=== PATIENT | female | born 1935 | race Caucasian/White ===

== ENCOUNTER 2016-10-01 15:31 | Emergency (ER) | payer MEDICARE, MEDICAID ==
[~2016-10-01] VITALS: Ht 149.9 cm; Wt 61.2 kg
[~2016-10-01 15:31] MED LIST: ACETAMINOPHEN500 M3 PO; ALBUTEROL2.5 MG/NEB IN; APAP/OXYCODONE1 TA1 PO; ATIVAN GENERIC0.5 MG PO; ATIVAN1 MG PO; AUGMENTIN1 TA1 PO; AZITHROMYCIN 250 MG PO; BACTRIM DS 8001 TA1 PO; BIPAP XX; CARDIZEM30 MG PO; CHERATUSSIN AC120 ML PO; CHEWABLE ASPIRI81 M1 PO; CLINDAMYCIN HC300 MG PO; COMBIVENT1 ARO IH; DILTIAZEM CD120 MG PO; DILTIAZEM HYDRO30 MG PO; Docusate Sodiu100 MG PO; FERROUS SULFAT200 M1 PO; FERROUS SULFAT325 M2 PO; FUROSEMIDE 20MG20 MG PO; GABAPENTIN300 MG PO; GAVISCON 6180 ML/BOT PO; GAVISCON 95 MG360 ML; GAVISCON ESRF360 ML PO; GUAIFENESIN DM PO; GUAIFENESIN ER600 MG PO; GUAIFENESIN400 M1 PO; IMDUR 30MG. TAB30 MG PO; IMODIUM2 MG PO; INVANZ1 GM IV; K-DUR 20MEQ TA20 MEQ PO; KLOR-CON M2020 MEQ PO; LACTULOSE10 GM/151 PO; LANSOPRAZOLE30 MG PO; LASIX20 MG; LASIX20 MG OR; LASIX20 MG PO; LEVAQUIN500 MG PO; LORTAB 500 MG-71 TAB PO; MACROBID100 M3 PO; MAXZIDE 25 MG-31 TA1 PO; MAXZIDE 25 MG-31 TAB PO; METOPROLOL 25 M25 MG PO; METOPROLOL25 MG PO; MUCINEX600 M1 PO; MULTI VITAMINS1 TA1 PO; MYRBETRIQ50 MG PO; NAPROXEN DELAY375 MG PO; NITROFURANTOIN100 M2 PO; NITROGLYCERIN0.4 MG SL; NITROLINGU0.4 MG/ACT SL; NYSTATIN 150 M150 ML; NYSTOP100000 U/G EX; OMEPRAZOLE20 MG PO; ONE DAILY PLUS1 EAC1 PO; OXYBUTYNIN CHLOR5 MG; OXYBUTYNIN5 MG PO; PERCOCET 10 MG1 EACH PO; PERCOCET 325 MG1 TA3 PO; PERCOCET1 TAB PO; PREDNISONE 20MG20 MG PO; PREVACID 30MG C30 M1 PO; PROAIR HFA0.09 MG/AC IH; REQUIP 1 MG TABL1 MG PO; REQUIP3 M1 PO; ROBAFEN AC 10480 ML PO; ROBAFEN DM 10120 ML PO; ROBITUSSIN DM 105 ML PO; SENNA LAXATIVE8.6 MG PO; SENNA8.6 M1 PO; SEPTRA DS 800 M1 TAB PO; SINGULAIR 10 MG10 MG PO; SYMBICORT1 AE1 IH; TRAMADOL 512 EACH/PA PO; TYLENOL ES500 MG PO; TYLENOL EXTRA500 M1 PO; ULTRAM50 MG PO; VITAMIN D50000 IU PO; ZAROXOLYN 2.5M2.5 MG PO; ZOFRAN ODT8 MG PO
--- NOTE | 2016-10-01 16:01 | Emergency Room Report ---
See Addendum History of Present Illness Time Seen by [id number] Presenting Problem in Triage Pt arrived:Ambulance Stretcher Presenting Problem:PER ASSISTED REPORT PT HAS BEEN LETHARGIC TODAY, DECREASED RESPONSIVENESS AND LOW SAO2 TODAY. UPON PT ARRIVAL TO ED PT IS ALERT AND ORIENTED X3, SAO2 99% ON 3L PER [facility]. PT STATES "I DON'T KNOW WHY THEY SENT ME HERE I TOLD THEM I AM FINE" Onset of symptoms date/time:/ or onset unknown for:MEDICAL HX UNKNOWN Treatment Prior to Arrival: O2 @ 3L PER [facility] B[facility] SCOUT Provided by:EMT Sepsis Risk Assessment: Temp: 98.5 B/P: 134/71 MAP: 92 Pulse: 88 Resp: 20 Recent fever? N Clinical Suspician of Infection? N Mental Status: 1 - Regular (Normal Baseline) Sepsis Risk:Low Sepsis Risk Have you (or family members/close friends) recently traveled outside the [place]? N If Yes, where/when: Have you had exposure to infectious disease within the past month? N TB? Other? Specify: Patient with hx of sleep apnea, refuses to wear Bipap. She states she was napping today when staff woke her up. They told her her oxygen was decreased. She subsequently had good oxygenation per EMS. She arrives with sats at 100 per cent, no complaints, and request for return to [place] without workup. She denies chest pain, no report of syncope, she denies SOB, denies palpitations. ALLERGIES Coded Allergies: No Known Drug Allergies (-- 08/28/16) Home Medications Active Scripts Furosemide (Furosemide) 40 MG PO DAILY #30 TAB Ref 1 Prov: 01/03/16 DILTIAZEM HCL (Diltiazem 24HR ER) 120 MG PO QHS 30 Days Ref 5 Prov: 09/28/16 Ertapenem Sodium (Invanz) 1 GM IV Q24H 5 Days Prov: 09/28/16 Device (Bipap Machine) 1 UNIT XX UD #1 Prov: 09/28/16 Reported Medications Gabapentin (Gabapentin 300MG) 300 MG PO 0900,1300,2100 ROPINIROLE HCL (Requip 1 Mg) 1 MG PO DAILY OXYBUTYNIN CHLORIDE (Oxybutynin 5MG Tab) 10 MG PO QHS ISOSORBIDE MONONITRATE (IMDUR 30MG) 30 MG PO DAILY ALBUTEROL (Albuterol 0.083% Neb) 2.5 MG IN Q4HP PRN SHORTNESS OF BREATH Lactulose 20 GM PO DAILYP PRN CONSTIPATION Lorazepam (Ativan) 0.25 MG PO Q6HP PRN ANXIETY DISORDER Multivitamin With Minerals (One Daily Plus Minerals) 1 EACH PO 1700 Omeprazole (Omeprazole 20MG) 20 MG PO 0600,2100 Senna Pod (Senna Laxative) 1 TAB PO 0900,1700 Acetaminophen (Acetaminophen Extra Strength) 1,000 MG PO Q6HP PRN MILD PAIN /FEVER NITROGLYCERIN (Nitrostat) 0.4 MG SL [id number] PRN CHEST PAIN BUDESONIDE/FORMOTEROL FUMARATE (Symbicort 160-4.5 Mcg Inhaler) 1 PUFF IH 0900, 1700 Ferrous Sulfate 325 MG PO DAILY Nystatin (Nystop) 15 GM EX BIDP PRN REDNESS TO GROIN/LUCA AREA Potassium Chloride (Klor-Con M20) 20 MEQ PO QID Montelukast Sodium (Singulair 10MG) 10 MG PO QHS Acetaminophen (Tylenol XS 500MG) 1,000 MG PO DAILY Metolazone (Zaroxolyn 2.5MG) 2.5 MG PO QOD OXYCODONE HCL/ACETAMINOPHEN (Percocet 5-325 MG Tablet) 1 TAB PO QHS Tramadol Hcl (Ultram 50MG) 50 MG PO Q6HP PRN PAIN Discontinued Reported Medications Ropinirole HCl (Requip) 3 MG PO QHS GUAIFENESIN/CODEINE PHOSPHATE (Cheratussin AC Syrup) 10 ML PO BID DILTIAZEM HCL (Diltiazem Hydrochloride) 30 MG PO TID Guaifenesin 400 MG PO TID History Medical History General CAD? No Angina: Yes GA: No Hypertension? No Hyperlipidemia? No CHF? Yes DVT? No PE? No COPD? Yes Asthma? Yes Anemia? Yes GERD? Yes Gastric ulcers? No GI Bleed? No Hernia? Yes Thyroid Problems? No Hypothyroidism? No CVA? No Seizures? No Diabetes? No Insulin Dependent: No Insulin Pump: No Home FSBS? No Renal Insuffiency? Yes End Stage Renal Disease? No UTI? Yes Stones? No BPH? No GB Disease: No Nephritic Syndrome? No Asplenia? No Hepatitis? No Sickle Cell Disease? No Arthritis? Yes Migraines? No Cataracts? No Glaucoma? No MRSA? Yes HIV? No TB? No Anxiety? No Depression? No Cancer? Yes Site: UTERINE More? 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 Immunization Hx DT/Tetanus Unknown Flu [id number] Pneumonia Received In Past Surgical Hx Previous Surgery?Y HYSTER DAMIAN BOTOX IN BLADDER Family History Family Hx Diabetes No CAD Yes Hypertension No Hyperlipidemia No Cancer Yes TB No Social History Smoking Hx Smoker: Never Smoker Tobacco: No Alcohol Alcohol: No Review of Systems All Other Systems Reviewed and Negative Respiratory see HPI Physical Exam Vital Signs Vital Signs Date Time Temp Pulse Resp B/P Pulse O2 O2 Flow FiO2 Ox Delivery Rate 10/01 1531 98.5 88 20 134/71 98 3 General Appearance normal appearance, WD/WN, no apparent distress (alert, conversant) Eye Exam - bilateral eye normal exam, bilateral eye PERRL, bilateral eye EOMI Ear, Nose, Throat hearing grossly normal (no FB, no drooling) Neck normal inspection, non-tender, supple, full range of motion Respiratory Status Yes: trachea midline, chest symmetrical, non tender chest. No: respiratory distress, tender on palpation, use of accessory muscles, pain on inspiration, pain on expiration, productive cough, non productive cough. Lung Sounds bilateral: normal breath sounds, lungs clear. Cardiovascular normal exam, regular rate/rhythm, no peripheral edema, no gallop, no JVD, no murmur, no rub, normal peripheral pulses Gastrointestinal normal bowel sounds, normal exam, non tender, soft, no organomegaly, no pulsatile mass, no guarding, no rebound Back normal inspection (significant kyphosis) Extremities non-tender, normal range of motion, normal inspection, normal capillary refill, no calf tenderness, no pedal edema Neurologic alert, adon II-XII nml as tested, normal exam, no motor/sensory deficits, oriented x 3, speech clear and fluent; answers all questions appropriately. Glascow Coma Scale Glascow Coma Scale Response Value EYE response: 4 Spontaneously 4 MOTOR response: 6 OBEYS 6 VERBAL response: 5 Oriented & Converses 5 Total 15 Reflexes Reflexes normal Yes Skin intact, normal color, warm/dry Medical Decision Making LABS/Meds/Orders Pt receiving controlled substance in ED? No Progress ED Progress Notes Date 10/01/16 Time 1559 Comment Patient requesting return to [place]; given hpi, this is a reasonable request with hx sleep apnea and no symptoms now that no longer napping; encourage Bipap at NH. Departure Departure Time of Disposition 1559 Disposition DC Home or Self Care(routine) Clinical Impression Primary Impression: Sleep apnea syndrome Qualifiers: Sleep apnea type: unspecified type Qualified Code: G47.30 - Sleep apnea, unspecified Condition STABLE Referrals Moise Gordon MD (Family) Patient Instructions Sleep Apnea Discharge Counseling Counseled pt/family regarding diagnosis, home care, follow up needs ED Critical Care Critical Care No at 1600
[2016-10-01 17:41] VITALS: BP 123/64
== END 2016-10-01 17:42 | disposition home or self-care (01) ==
LOC: ER 15:31
DX: G47.30 Sleep apnea, unspecified (principal); J44.9 Chronic obstructive pulmonary disease, unspecified; K21.9 Gastro-esophageal reflux disease without esophagitis; M40.00 Postural kyphosis, site unspecified